=== PATIENT | male | born 1960 | race Caucasian/White ===

== ENCOUNTER 2021-05-25 12:28 | Emergency (ER) | payer BC ==
[~2021-05-25] VITALS: Ht 162.6 cm; Wt 81.3 kg
[2021-05-25] MEDS ORDERED: NITROGLYCERIN SUBLINGUAL 0.4 MG BOTTLE OF 25. SL PRN (12:45)
--- NOTE | 2021-05-25 12:49 | EKG ---
[address] [address] Test Date: 2021-05-25 Test Time: 12:36:53 Pat Name: AMY MERCHANT Department: Room: Gender: M Glazier Stained Glass: ESTRELLITA : 1960 Requested By: NIECY BARCLAY Order Number: [id number] Reading MD: Measurements Intervals [place] Rate: 61 P: 41 DE: 196 QRS: 18 QRSD: 92 T: 37 QT: 394 QTc: 398 Interpretive Statements SINUS RHYTHM QRS(T) CONTOUR ABNORMALITY CONSIDER INFERIOR MYOCARDIAL DAMAGE POSSIBLY ABNORMAL ECG RI6.01 No previous ECG available for comparison
--- NOTE | 2021-05-25 12:54 | PHYS DOC ---
Past History Additional Past Medical Histor: femoral blockages bilat, angina Past Surgical History: Tonsillectomy, Other Additional Past Surgical Histo: bilat carpal tunneling repair, bilat ing. hernia General Adult EDM: Chief Complaint: CHEST PAIN HPI: HPI: Patient is a 60-year-old male who presents to the emergency department for chest pain that started at 7:00 this morning. Patient is reporting left-sided chest pain that is sharp and intermittent. Pain does not radiate. No alleviating or aggravating factors. He reports that the chest pains only last a few minutes and resolve. He took aspirin prior to arrival. He is not having any chest pain currently. He reports that he typically has angina and experiences right-sided chest pain. He denies any shortness of breath, nausea, vomiting, fever, cough. Patient is a current smoker. He has a history of [place]. 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 Patient reports that he is scheduled to have a stent placed in his lower leg due to femoral blockages. Review of Systems: Review of Systems: Constitutional: negative unless reported in HPI Eyes: negative unless reported in HPI HENT: negative unless reported in HPI Respiratory: negative unless reported in HPI Cardiovascular: negative unless reported in HPI GI: negative unless reported in HPI : negative unless reported in HPI Musculoskeletal: negative unless reported in HPI Integument: negative unless reported in HPI Neurologic: negative unless reported in HPI Endocrine: negative unless reported in HPI Lymphatic: negative unless reported in HPI Psychiatric: negative unless reported in HPI Allergies: Allergies: Allergies Coded Allergies Type Severity Reaction Last Updated Verified Penicillins Allergy Unknown Hives 05/25/21 Yes Sulfa (Sulfonamide Antibiotics) Allergy Unknown 05/25/21 Yes Physical Exam: PE: Constitutional: Well developed, well nourished, no acute distress, non-toxic appearance. [] HENT: Normocephalic, atraumatic, bilateral external ears normal, oropharynx moist, no oral exudates, nose normal. [] Eyes: PERRL, EOMI, conjunctiva normal, no discharge. [] Neck: Normal range of motion, no tenderness, supple, no stridor. [] Cardiovascular:Heart rate regular rhythm, no murmur, left-sided chest pain [] Lungs & Thorax: Bilateral breath sounds clear to auscultation [] Abdomen: Bowel sounds normal, soft, no tenderness, no masses, no pulsatile masses. [] Skin: Warm, dry, no erythema, no rash. [] Back: Full range of motion Extremities: No tenderness, no cyanosis, no clubbing, ROM intact, no edema, strong right posterior tibialis pulse, pulse nonpalpable left lower extremity however limb is warm and has cap refill less than 3 seconds Neurologic: Alert and oriented X 3, normal motor function, normal sensory fun ction, no focal deficits noted. [] Psychologic: Affect normal, judgement normal, mood normal. [] Current Patient Data: Labs: Laboratory Tests Test 05/25/21 13:05 White Blood Count 6.8 x10^3/uL Red Blood Count 4.63 x10^6/uL Hemoglobin 13.7 g/dL Hematocrit 40.4 % Mean Corpuscular Volume 87 fL Mean Corpuscular Hemoglobin 30 pg Mean Corpuscular Hemoglobin Concent 34 g/dL Red Cell Distribution Width 15.9 % Platelet Count 207 x10^3/uL Neutrophils (%) (Auto) 63 % Lymphocytes (%) (Auto) 29 % Monocytes (%) (Auto) 5 % Eosinophils (%) (Auto) 3 % Basophils (%) (Auto) 0 % Neutrophils # (Auto) 4.3 x10^3uL Lymphocytes # (Auto) 2.0 x10^3/uL Monocytes # (Auto) 0.4 x10^3/uL Eosinophils # (Auto) 0.2 x10^3/uL Basophils # (Auto) 0.0 x10^3/uL Sodium Level 133 mmol/L Potassium Level 3.5 mmol/L Chloride Level 101 mmol/L Carbon Dioxide Level 24 mmol/L Anion Gap 8 Blood Urea Nitrogen 8 mg/dL Creatinine 0.6 mg/dL Estimated GFR (Cockcroft-Gault) 138.4 BUN/Creatinine Ratio 13 Glucose Level 112 mg/dL Calcium Level 9.0 mg/dL Total Bilirubin 0.7 mg/dL Aspartate Amino Transf (AST/SGOT) 43 U/L Alanine Aminotransferase (ALT/SGPT) 44 U/L Alkaline Phosphatase 85 U/L Troponin I High Sensitivity 7 ng/L Total Protein 7.2 g/dL Albumin 3.7 g/dL Albumin/Globulin Ratio 1.1 Current Medications Medications (Trade) Dose Ordered Sig/Hamzah Route PRN Reason Start Time Stop Time Status Last Admin Dose Admin Nitroglycerin (Nitrostat) 0.4 mg PRN Q5MIN PRN SL CP RATING > 1/10 05/25/21 12:45 05/26/21 12:44 05/25/21 13:13 EKG: EKG: EKG performed by ER staff at 1236 shows sinus rhythm with a rate of 61, QTc of 398. [] Radiology/Procedures: Radiology/Procedures: PROCEDURE: PORTABLE CHEST 1V EXAM: XR CHEST 1V 05/25/2021 12:56 PM CLINICAL INDICATION: Chest pain COMPARISON: CT calcium score 05/17/2021 TECHNIQUE: AP view of the chest FINDINGS: Heart is normal in size. Lungs are adequately expanded. There is a new bandlike opacity in the left lower lobe, likely atelectasis. The right lung is clear. No pleural effusion or pneumothorax. No acute osseous abnormality. IMPRESSION: New bandlike opacity in the left lower lobe, likely atelectasis. Electronically signed by: Love Villagran MD (05/25/2021 1:09 PM) [id number] DICTATED AND SIGNED BY: LOVE VILLAGRAN MD DATE: 05/25/21 1307 CC: NIECY BARCLAY APRN; NON,STAFF ~MTH0 0 Heart Score: C/O Chest Pain: Yes HEART Score for Chest Pain: HEART Score for Chest Pain Response (Comments) Value History Moderately Suspicious 1 ECG Nonspecific Repolarizatio 1 Age >45 - < 65 1 Risk Factors >3 Risk Factors or Hx CAD 2 Troponin < Normal Limit 0 Total 5 Risk Factors: Risk Factors: DM, Current or recent (<one month) smoker, HTN, HLP, family history of CAD, obesity. Risk Scores: Score 0 - 3: 2.5% MACE over next 6 weeks - Discharge Home Score 4 - 6: 20.3% MACE over next 6 weeks - Admit for Clinical Observation Score 7 - 10: 72.7% MACE over next 6 weeks - Early Invasive Strategies Course & Med Decision Making: Course & Med Decision Making Pertinent Labs and Imaging studies reviewed. (See chart for details) [] Patient presents to the emergency department for intermittent sharp left- sided chest pain that lasts approximately 2 minutes and resolves. Patient re ports that the symptoms have been going on since 7:00 this morning. Patient is not actively having any chest pain. Patient reports a history of angina but is usually experiencing right-sided chest pain. Patient states he has a history of hypertension, GERD, MIs, peripheral vascular disease. He reports that he has collateral flow. He states that he is scheduled for a stent in his lower extremities due to femoral blockages. I cannot palpate a pulse in patient's left lower extremity therefore Doppler was ordered. Patient's labs extremity however is warm and has good cap refill. Work-up in the ER consisted of blood work, EKG, chest x-ray. Chest x-ray showed bandlike atelectasis in left lower lobe. Blood work unremarkable. Patient does not have an elevated troponin. MOPHEAD SEWER was able to use a Doppler and got a femoral pulse on the l left lower extremity. Patient's heart score is 5. He will need to be admitted and have cardiology consultation and serial troponin. Discussed these findings with Dr. Marquez who reported the patient needed to be transferred to [place] for cardiology consultation and we do not have ICU capability at this hospital. I discussed patient's case with Dr. Becker At [facility]. Cardiology consultation ordered. 1403. Eddie Disclaimer: Eddie Disclaimer: This electronic medical record was generated, in whole or in part, using a voice recognition dictation system. Departure Departure: Impression: Primary Impression: Chest pain Qualified Codes: R07.9 - Chest pain, unspecified Disposition: 02 SHORT TERM HOSPITAL Condition: STABLE Referrals: NON,STAFF (PCP) NIECY BARCLAY APRN May 25, 2021 12:54
--- NOTE | 2021-05-25 13:11 | RAD ---
EXAM: XR CHEST 1V 05/25/2021 12:56 PM CLINICAL INDICATION: Chest pain COMPARISON: CT calcium score 05/17/2021 TECHNIQUE: AP view of the chest FINDINGS: Heart is normal in size. Lungs are adequately expanded. There is a new bandlike opacity in the left lower lobe, likely atelectasis. The right lung is clear. No pleural effusion or pneumothora x. No acute osseous abnormality. IMPRESSION: New bandlike opacity in the left lower lobe, likely atelectasis. Electronically signed by: Love Villagran MD (05/25/2021 1:09 PM) [id number]
[2021-05-25 13:20] LABS: BASO % 0 % (0-3); EOS # 0.2 x10^3/uL (0.0-0.7); EOS % 3 % (0-3); HEMATOCRIT 40.4 % (39.0-53.0); HEMOGLOBIN 13.7 g/dL (13.0-17.5); LYMPH % 29 % (24-48); MEAN CORPUSCULAR HEMOGLOBIN 30 pg (25-35); MEAN CORPUSCULAR HGB CONC 34 g/dL (31-37); MEAN CORPUSCULAR VOLUME 87 fL (79-100); MONO # 0.4 x10^3/uL (0.0-1.1); MONO % 5 % (0-9); NEUT # 4.3 x10^3uL (1.8-7.7); NEUT % 63 % (31-73); PLATELET COUNT 207 x10^3/uL (140-400); RED BLOOD COUNT 4.63 x10^6/uL (4.30-5.70); RED CELL DISTRIBUTION WIDTH 15.9 % (11.5-14.5); WHITE BLOOD COUNT 6.8 x10^3/uL (4.0-11.0)
[2021-05-25 13:32] LABS: CREATININE 0.6 mg/dL (0.7-1.3); GFR 138.4; POTASSIUM 3.5 mmol/L (3.5-5.1)
[2021-05-25 13:37] LABS: ALBUMIN 3.7 g/dL (3.4-5.0); ALBUMIN/GLOBULIN RATIO 1.1 (1.0-1.7); TOTAL BILIRUBIN 0.7 mg/dL (0.2-1.0); TOTAL PROTEIN 7.2 g/dL (6.4-8.2)
[2021-05-25 18:43] VITALS: BP 132/75
== END 2021-05-25 18:43 | disposition short-term general hospital (02) ==
LOC: ER 12:28
DX: R07.89 Other chest pain (principal); I25.2 Old myocardial infarction; I10 Essential (primary) hypertension; K21.9 Gastro-esophageal reflux disease without esophagitis; Z20.822 Contact with and (suspected) exposure to COVID-19; Z88.0 Allergy status to penicillin; Z88.2 Allergy status to sulfonamides
CPT/HCPCS: 36415; 71045; 80053; 84484; 85025; 87426; 93005; 99285; U0003